=== PATIENT | female | born 1995 | race Caucasian/White ===

== ENCOUNTER 2017-01-28 15:42 | Inpatient (IN) | payer OTHER ==
[2017-01-28] MEDS ORDERED: Lactated Ringer's 1,000 ML IV SCH (16:45)
--- NOTE | 2017-01-28 16:52 | OBADHP ---
Datetime: 01/28/2017 16:00 IP Chief Complaint Other: Vaginal pressure IP Admit Plan Other: Cervical ripening Admit Comment, IP Provider: 21 y.o. , LMP unsure, [place] 02/02/, EGA 39w 2d c/o vaginal pressur e x 2 weeks, and occ Ctx, pain scale 3/10, every 1-2 hours. (+) AFM; denies LOF, VB. Passed mucous pl ug approx 2 weeks ago. care: Dr. Eugenio Barbour, no issues. P Ob: x 1, 2013, female 6lb 14 oz, [place], no complications. 2012, Spont Ab @ approx 4 wks , no D_C, no other complications P BELT SEWER: 15 x 28 x 5. Denies STIs. PMH: denies PSH: denies NKDA Meds: PNV - QD Soc Hx. Denies tobacco, illicit drug or EtOH use. With FOB x 6 years; 05/2016. Fam Hx: Mother alive 50 - DM. Father alive 65 - DM, enlarged heart. No known fam h/o cancer P.E.: as above. WD in NAD. Awake, aleart, oriented to time, person and place. Pleasant and coopera tive Assessment: 21 yo P1011, 39w 2d, prolonged latent phase of labor, for delivery - cervical ripening . Category 1 tracing. Clinically stable. Plan: 1) Admit 2) NPO 3) Continuous EFM 4) Admission labs 5) Cytotec pV 6) Epidural, upon request 7) Anticipate vaginal delivery - as per, and discussed with, Dr. Barbour Pelvic Type - PN: Adequate Extremities - PN: Normal Abdomen - PN: Normal Back - PN: Normal Breast - PN: Not Done Lungs - PN: Normal Heart - PN: Normal Thyroid - PN: Not Done Neurologic - PN: Normal HEENT - PN: Normal General - PN: Normal Presentation-Admit: Vertex FHR - Baseline A Provider: 150 Membranes, Provider: Intact Contraction Comments Provider: irregular Comments, ACOG Physical Exam: Skin: warm, dry, intact HEENT: full ROM Lungs: CTA bilaterally Cardiac: RRR, normal S1, S2 Abdomen: Gravid. soft, Non tender. Fundal height 38 cm : no masses or abnormal discharge Extremities: no calf tenderness, cyanosis or edema All other systems reviewed and are negative Gestation - Est Wks by US: 39w 2d IP Hx Assessment: The History has been Reviewed and is Current Vital Signs Provider: Reviewed IP Chief Complaint: Other NICHD Variability Prov Fetus A: Moderate 6-25bpm NICHD Accel Fetus A IP Provider: 15X15 FHR Category Provider Fetus A: Category I NICHD Decel Fetus A IP Provider: None Dilatation, Provider: 2-3 Effacement, Provider: 40 Station, Provider: -3 Genitourinary Exam: Normal DTRs - PN: Not Done EGA AdmitDate IP: 39.2 IP Adm Impression: Term, intrauterine ; No Active Labor; Intact Membranes IP Admit Plan: Admit to unit; Initiate labor induction protocol Datetime: 12/11/2016 17:21 Pool Provider: Negative Nitrazine Provider: Negative
[2017-01-28 17:11] LABS: BASO % 0.1 % (0.0-2.0); EOS # 0.1 K/uL (0.0-0.7); EOS % 1.5 % (0.0-4.0); HEMATOCRIT 35.8 % (34.0-47.0); LYMPH # 1.4 K/uL (1.0-4.3); LYMPH % 14.8 % (20.0-40.0); MEAN CELL VOLUME 94.6 fL (81.0-99.0); MEAN CORPUSCULAR HGB CONC 33.8 g/dL (33.0-37.0); MEAN PLATELET VOLUME 8.9 fL (7.2-11.7); MONO # 0.8 K/uL (0.0-0.8); MONO % 8.6 % (0.0-10.0); NRBC % 0.1 % (0.0-2.0); RED CELL DISTRIBUTION WIDTH 12.8 % (11.5-14.5); WHITE BLOOD COUNT 9.5 K/uL (4.8-10.8)
[2017-01-28 17:17] LABS: CHLORIDE 98 mmol/L (98-107)
[2017-01-28 17:18] LABS: POTASSIUM 3.8 mmol/L (3.6-5.2); SODIUM 133 mmol/L (132-148)
[2017-01-28 17:20] LABS: BILIRUBIN,TOTAL 1.4 mg/dL (0.2-1.3); CARBON DIOXIDE 20 mmol/L (22-30); GFR AFRICAN-AMERICAN > 60
[2017-01-28 17:21] LABS: ALB/GLOB RATIO 1.1 (1.0-2.1); ALKALINE PHOSPHATASE 103 U/L (38-126); ALT/SGPT 18 U/L (9-52); AST/SGOT 23 U/L (14-36); BLOOD UREA NITROGEN 9 mg/dL (7-17); GLUCOSE,RANDOM 82 mg/dL (65-105); TOTAL PROTEIN 7.1 g/dL (6.3-8.3)
[2017-01-28 17:28] LABS: RBC URINE 1 /hpf (0-3); TRANSITIONAL EPITHIAL < 1 /hpf (0-3); URINE BACTERIA RARE (<OCC); URINE BILIRUBIN NEGATIVE (NEGATIVE); URINE BLOOD NEGATIVE (NEGATIVE); URINE CALCIUM OXALATE CRYSTALS OCC /hpf (<OCC); URINE COLOR Yellow (YELLOW); URINE GLUCOSE (UA) NORMAL (Normal); URINE KETONE NEGATIVE (NEGATIVE); URINE LEUKOCYTE ESTERASE NEG Leu/uL (Negative); URINE PROTEIN NEGATIVE (NEGATIVE); URINE UROBILINOGEN NORMAL mg/dL (0.2-1.0); WBC URINE 1 /hpf (0-5)
[2017-01-28] MEDS ORDERED: Bupivacaine 0.125%/FentaNYL 200 ML EPI ONE (18:31)
--- NOTE | 2017-01-28 20:12 | OBPN ---
Datetime: 01/28/2017 18:03 IP Progress Plan: Cervical Ripening Contraction Comments Provider: 4-5 FHR - Baseline A Provider: 145 IP Progress Note Comment: Patient reports pain scale 4/10 Cytotec #1 placed in posterior vagina vault A/P: P1011, 39w 2d, cervical ripening. Category 1 tracing. Clnically stable 1) Continue present management 2) Labor epidural, upon request. - Dr. Barbour to be made aware - NICHD Accel Fetus A IP Provider: 15X15 FHR Category Provider Fetus A: Category III NICHD Variability Prov Fetus A: Moderate 6-25bpm Dilatation, Provider: 2-3 Effacement, Provider: 40 Station, Provider: -3 NICHD Decel Fetus A IP Provider: None Datetime: 01/28/2017 16:00 Membranes, Provider: Intact Gestation - Est Wks by US: 39w 2d Presentation-Admit: Vertex Vital Signs Provider: Reviewed Datetime: 12/11/2016 17:21 Pool Provider: Negative Nitrazine Provider: Negative
--- NOTE | 2017-01-28 20:56 | OBPN ---
Datetime: 01/28/2017 20:48 IP Progress Impression: Normal progression of labor Membranes, Provider: Intact Contraction Comments Provider: every 2 minutes IP Progress Note Comment: FHR tracing noted for variaable decelerations Patient received in left lateral position, oxygen mask on V.E. as above. Cervix mid - to anterior position, medium to soft consistency: (+) acceleration wit h scalp stimulation Assessment: P1011, 39w 2d, cervical ripening with cytotec pV - appropriate response. FHR as above. Will observe Plan: 1) as above. 2) will notify Dr. Km [place], Provider: 3 Effacement, Provider: 50 Station, Provider: -2
--- NOTE | 2017-01-28 23:33 | OBPN ---
Datetime: 01/28/2017 23:30 IP Progress Impression: Normal progression of labor IP Procedures: Artificial ROM IP Progress Plan: Continue present management Membranes, Provider: Ruptured Amniotic Fluid Color, Provider: Clear Contraction Comments Provider: q 2-3 min FHR - Baseline A Provider: 135 Gestation - Est Wks by US: 39.2 Presentation-Admit: Vertex IP Progress Note Comment: Pt seen and examined reports pain alleviated s/p epdiural. s/p AROM VSS A/P @ 39+ wks IOL for favorable cervix at term -s/p ctytoec -s/p epidural -Variable decerlatin, given IVH, left laterl decubitus psoitoin, oxygen -cont toco and efm Vital Signs Provider: Reviewed; Within Normal Limits NICHD Variability Prov Fetus A: Moderate 6-25bpm Dilatation, Provider: 4 Effacement, Provider: 50 Station, Provider: -3 NICHD Decel Fetus A IP Provider: Early; Variable
--- NOTE | 2017-01-29 00:16 | OBPN ---
Datetime: 01/29/2017 00:11 IP Progress Impression: Normal progression of labor; Non-reassuring heart rate IP Procedures: Artificial ROM IP Progress Plan: Continue present management Membranes, Provider: Ruptured Contraction Comments Provider: q 2 min FHR - Baseline A Provider: 135 Gestation - Est Wks by US: 39.3 IP Progress Note Comment: pt seen and examined after feeling pressure constatn, denies ctx pain,LOF, s/p epidural VSS VE see above EFM: Cat II TOCO: /-1 vtx A/P @ 39.3 wk GA in active labor -cont oxygen, left, lateral , iVH -pt informed of cat II tracing and possibly of ceseraen section if tracing worens or labor does no t progress -will continue current managemetn for now Vital Signs Provider: Reviewed; Within Normal Limits NICHD Variability Prov Fetus A: Moderate 6-25bpm Dilatation, Provider: 5 Effacement, Provider: 60 Station, Provider: -1 NICHD Decel Fetus A IP Provider: Variable
--- NOTE | 2017-01-29 01:41 | OBDS ---
DELIVERY PERSONNEL Delivery Doctor: Sammy Barbour MD Scrub Nurse: Isabelle Gamez Installation And Repair Technician: Jacqueline Rahman RN Anesthesiologist: Froylan Simmons MD MATERNAL INFORMATION Delivery Anesthesia: Epidural Medications in Delivery: pitocin and methergin Estimated Blood Loss (ml): 300 Placenta Cultured: No Maternal Complications: None Provider Comments: pt was fully dilated, atrumatic, spontaneous deliveyr of head in DANNY postion, no nuchal cord noted. Atruamtic, spontanoeus delivery of anterior followed by posteiroe shoulder followe d by deliveyr of stephen body. Both oral and nasal passages of stephen baby were bulb suctioned. Umbilcal cor d was clamped and cut. Baby was handed mother on abodmen with RN assistance. Cord blood and cord gas es collected and sent x 2. Sponteanous delivery of intact placent with membranes. Fundus Firm, lowe r uterine segment boggy. Bimanual massage, clots evcauated. Lower uterine segment boddy, Methergine I M x 1 given. no lacerations, intact perienum. Good hemostasis, no complications. live female apgars 9,9 weight of 7lbs 1 ounces ebl 300ml LABOR SUMMARY EDC: 02/02/2017 00:00 No. Babies in Womb: 0 LABOR INFORMATION Onset of Labor: 01/28/2017 18:00 Cervical Ripening Agents: Cytotec @ 25 mcg PV Group B Beta Strep: Negative (Annotations: 01/05/2017) MEMBRANES Membranes Rupture Method: Artificial Rupture of Membranes: 01/28/2017 21:48 Length of Rupture (hrs): 3.60 Amniotic Fluid Color: Clear Amniotic Fluid Amount: None STAGES OF LABOR Stage 3 hrs: -23 Stage 3 min: -56 Total Time in Labor hrs: -16 Total Time in Labor min: -32 VAGINAL DELIVERY Episiotomy: None Laceration Extension: N/A Laceration Type: None Laceration Repair: Not Applicable Laceration Repair Note: not applicable, intact perineum BABY A INFORMATION Delivery Date/Time: 01/29/2017 01:24 Method of Delivery: Vaginal Born in Route : No : N/A Forceps: N/A Vacuum Extraction: N/A Shoulder Dystocia : No SHOULDER DYSTOCIA BABY A Infant Delivery Date/Time: 01/29/2017 01:24 PRESENTATION/POSITION BABY A Presentation: Cephalic Cephalic Presentation: Vertex Vertex Position: Right Occipital Anterior Breech Presentation: N/A PLACENTA INFORMATION BABY A Placenta Delivery Time : 01/28/2017 01:28 Placenta Method of Delivery: Spontaneous Placenta Status: Delivered SCORES BABY A Heart Rate 1 min: >100 bpm Resp Effort 1 min: Good Cry Reflex Irritability 1 min: Cough or Sneeze or Pulls Away Muscle Tone 1 min: Active Motion Color 1 min: Body [place], Extremities Blue SCORE 1 MIN: 9 Heart Rate 5 min: >100 bpm Resp Effort 5 min: Good Cry Reflex Irritability 5 min: Cough or Sneeze or Pulls Away Muscle Tone 5 min: Active Motion Color 5 min: Body [place], Extremities Blue SCORE 5 MIN: 9 INFANT INFORMATION BABY A Gestational Age at Delivery: 39.2 Gestational Status: Term Outcome : Liveborn Condition : Stable Infant Sex: Female IDENTIFICATION/MEDS BABY A ID Band Number: [id number] ID Band Location: Left Leg; Left Arm Sensor Applied: Yes Sensor Number: [id number] Sensor Location : Cord Clamp Vitamin K Given : Not Given Erythromycin Given: Not Given WEIGHT/LENGTH BABY A Infant Birthweight (gms): 3195 Weight (lb): 7 Weight (oz): 1 Infant Length Inches: 19.50 Length cms: 49.5 CORD INFORMATION BABY A No. Cord Vessels: 3 Nuchal Cord : N/A Cord Blood Taken: Yes Infant Suction: None ASSESSMENT BABY A Infant Complications: None Physical Findings at Delivery: Within Normal Limits Respirations: Appears Normal Medical Logistics Specialist/ALS Called : No Infant Care By: Celestina Shepherd Transferred To: Remains with Mother
[2017-01-29] MEDS ORDERED: Oxycodone/Acetaminophen 5/325 mg Tab PO PRN (01:42)
[2017-01-29] MEDS ORDERED: Benzocaine/Menthol 20%-0.5% Topical Spray (60 ml) TOP PRN (01:42)
[2017-01-29] MEDS ORDERED: Oxytocin 30 UNIT 1,000 ML IV SCH (01:45)
[2017-01-29 13:50] LABS: BASO % 0.3 % (0.0-2.0); EOS # 0.1 K/uL (0.0-0.7); EOS % 0.5 % (0.0-4.0); HEMATOCRIT 32.5 % (34.0-47.0); LYMPH # 1.9 K/uL (1.0-4.3); LYMPH % 13.1 % (20.0-40.0); MEAN CELL VOLUME 95.1 fL (81.0-99.0); MEAN CORPUSCULAR HEMOGLOBIN 31.9 pg (27.0-31.0); MEAN CORPUSCULAR HGB CONC 33.6 g/dL (33.0-37.0); MONO # 1.1 K/uL (0.0-0.8); MONO % 7.7 % (0.0-10.0); RED CELL DISTRIBUTION WIDTH 12.9 % (11.5-14.5); WHITE BLOOD COUNT 14.2 K/uL (4.8-10.8)
[2017-01-29] MEDS: Oxycodone/Acetaminophen 5/325 mg Tab PO PRN (17:34)
[2017-01-30] MEDS: Oxycodone/Acetaminophen 5/325 mg Tab PO PRN ×2 (01:36→08:09)
[2017-01-30 07:35] LABS: BASO % 0.2 % (0.0-2.0); EOS # 0.2 K/uL (0.0-0.7); LYMPH # 2.4 K/uL (1.0-4.3); LYMPH % 26.4 % (20.0-40.0); MEAN CELL VOLUME 95.7 fL (81.0-99.0); MEAN CORPUSCULAR HEMOGLOBIN 32.2 pg (27.0-31.0); MEAN CORPUSCULAR HGB CONC 33.7 g/dL (33.0-37.0); MEAN PLATELET VOLUME 8.9 fL (7.2-11.7); MONO # 0.9 K/uL (0.0-0.8); MONO % 9.7 % (0.0-10.0); RED CELL DISTRIBUTION WIDTH 12.9 % (11.5-14.5); WHITE BLOOD COUNT 9.1 K/uL (4.8-10.8)
[2017-01-30 07:47] VITALS: BP 94/58; PULSE 69; RESP 18; TEMP 98.1; O2SAT 99
--- NOTE | 2017-01-30 08:22 | OBPPN ---
Datetime: 01/30/2017 07:38 PP Pain Prov: Within normal limits PP Nausea Prov: Denies PP Flatus Prov: Yes PP BM Prov: No PP Breasts Prov: Not Done PP Heart Prov: Normal PP Lungs Prov: Normal PP Abdomen/Uterus Prov: Normal PP Lochia Prov: Normal PP Vulva/Perineum Prov: Not Done PP CVA Tenderness Prov: Normal PP Extremities Prov: Normal PP Impression Prov: Normal progression PP Plan Prov: Discharge PP Progress Note Prov: S-patient denies any compalints.reports that pain is well controlled.Denies n ausea, vomiting, headache, chest pain, shortness of breath, numbness or tingling in hands and feet O-VSS afebrile Fundus firm and below umbilcius Extremities no calf tendernes A/P Patient s/p vaginal delivery PPD 1 doing well.Patient requesting to be discharged. discharge if baby discharged if discharged follow up with dr bob in 6 weeks Vital Signs Provider PP: Reviewed; Within Normal Limits
--- NOTE | 2017-01-30 12:35 | OBDCSUM ---
Datetime: 01/30/2017 08:03 Discharged to, Provider: Home Follow up at, Provider: Dr Barbour Disch Instr Activity: Normal activity; May Shower Disch Instr Diet: Regular Discharge Diet restrict Prov: none Discharge Instructions, Provider: Routine instructions given Discharge Diagnosis, Provider: Term Delivered Discharge Time: 01/30/2017 08:21 Follow up in weeks, Provider: 6 weeks Disch Referrals: None Disch Activity Restrictions: No sexual activity; Nothing in vagina - [place], tampons, douche Discharge Comment, Provider: go to the er if you have severe pain, heavy bleeding or any other probl ems Discharge Diagnosis Prov Other: s/p vaginal delivery
== END 2017-01-30 12:29 | disposition home or self-care (01) | DRG 373 ==
LOC: C.EROB 15:42 → C.4D 16:31 → C.4M 01-29 03:30
PROVIDERS: ADMIT Obstetrics & Gynecology; ATTEND Obstetrics & Gynecology
PROC: 10E0XZZ Delivery of Products of Conception, External Approach (ICD-10-PCS; principal; 2017-01-29)
PROC: 10907ZC Drainage of Amniotic Fluid, Therapeutic from Products of Conception, Via Natural or Artificial Opening (ICD-10-PCS; 2017-01-29)
DX: O63.0 Prolonged first stage (of labor) (principal); O76 Abnormality in fetal heart rate and rhythm complicating labor and delivery; Z3A.39 39 weeks gestation of pregnancy; Z37.0 Single live birth